=== PATIENT | male | born 1995 | race African-American/Black ===

== ENCOUNTER 2016-12-30 14:03 | Emergency (ER) | payer OTHER ==
[~2016-12-30] VITALS: Ht 170.2 cm; Wt 70.5 kg
[2016-12-30] MEDS ORDERED: KETOROLAC 30 MG/ML VIAL (J1885) IV ONE (14:30)
[2016-12-30] MEDS ORDERED: MORPHINE 4 MG/ML 1ML SYRINGE IV ONE (15:15)
[2016-12-30] MEDS ORDERED: HYDROmorphone HCL 1 MG/ML SYRINGE (J1170) IV ONE (15:45)
[2016-12-30] MEDS ORDERED: NAPR500T PO (16:52)
[2016-12-30] MEDS ORDERED: VALI5TAB PO ×2 (16:53→17:54)
[2016-12-30] MEDS ORDERED: PERC5TAB12 PO ×2 (16:54→17:55)
[2016-12-30 18:30] VITALS: BP 120/59
== END 2016-12-30 18:33 | disposition home or self-care (01) ==
LOC: M ED 14:03 → EDBD 14:03 → M ED 18:33
DX: M54.5 Low back pain (principal); M79.604 Pain in right leg
CPT/HCPCS: 96374; 96375; 99283; J1170; J1885; J3360